=== PATIENT | female | born 1965 | race Caucasian/White ===

== ENCOUNTER 2018-07-12 07:31 | Day surgery (SDC) | payer BC ==
[2018-07-12 08:08] VITALS: BP 139/74
[2018-07-12] MEDS ORDERED: MARCAINE 0.5% INFILTRATI ONE ×2 (08:28→08:47)
[2018-07-12] MEDS ORDERED: XYLOCAINE 1% 20 mL ONE (08:28)
[2018-07-12] MEDS ORDERED: XYLOCAINE 1% 20 mL INFILTRATI ONE (08:47)
--- NOTE | 2018-07-12 10:36 | Procedure Note ---
Date of procedure: 07/12/18 Pre-op diagnosis: chronic low back pain Post-op diagnosis: same Procedure: Lumbar facet blocks left L3-5 Procedure The patient was brought to the OR and placed prone onto the OR table, the lumbar spine was prepped and draped in the usual sterile manner. A timeout procedure was done to identify the patient and the correct levels of nerve block being performed the patient was awake during the procedure. Using C-arm fluoroscopy the L5 for an levels were visualized in both the PA and 45 oblique views 20- gauge spinal needles were inserted again under direct fluoroscopic control after placing the spinal needles and the correct position and Marcaine injection was performed using 1% without epinephrine. The patient tolerated the procedure and no complications Anesthesia: local Surgeon: MARYAN BLACKBURN Estimated blood loss: minimal Condition: stable Disposition: observation
--- NOTE | 2018-07-13 07:50 | XRay Report ---
SPINE ONE VIEW SPECIFIED History: Chronic back pain. Findings: Fluoroscopy was provided by radiology during lumbar facet injection from L3-5 on the left side. 2 fluoroscopic images are presented demonstrating good needle placement. There is no obvious fracture or malalignment. Minor degenerative changes are suspected. Impression: Needle placement for facet injection. Minimal lumbar spondylosis.
== END 2018-07-12 09:40 | disposition home or self-care (01) ==
LOC: OR 07:31
PROVIDERS: ATTEND Orthopaedic Surgery
DX: M47.816 Spondylosis without myelopathy or radiculopathy, lumbar region (principal); E78.00 Pure hypercholesterolemia, unspecified; I10 Essential (primary) hypertension; M19.90 Unspecified osteoarthritis, unspecified site; F41.9 Anxiety disorder, unspecified; Z90.721 Acquired absence of ovaries, unilateral; Z79.899 Other long term (current) drug therapy
CPT/HCPCS: 72020; 82962

== ENCOUNTER 2018-09-26 08:16 | Outpatient (CLI) | payer BC ==
[2018-09-26 11:09] LABS: Chol/HDL Ratio 2.43 %
== END 2018-09-26 08:17 | disposition home or self-care (01) ==
LOC: LAB 08:16
PROVIDERS: ATTEND Internal Medicine
DX: E11.9 Type 2 diabetes mellitus without complications (principal); E78.5 Hyperlipidemia, unspecified; I10 Essential (primary) hypertension; E66.09 Other obesity due to excess calories; E78.00 Pure hypercholesterolemia, unspecified
CPT/HCPCS: 36415; 80061; 83036

== ENCOUNTER 2018-10-04 08:14 | Day surgery (SDC) | payer BC ==
[~2018-10-04 08:14] MED LIST: ANCEF/STERILE WATER 2 GM/20 ML IV NR; LACTATED RINGERS 1,000 ML IV SCH; VERSED IV NR
== END 2018-10-04 08:15 | disposition home or self-care (01) ==
LOC: OR 08:14
PROVIDERS: ATTEND Orthopaedic Surgery
DX: M54.5 Low back pain (principal); E78.00 Pure hypercholesterolemia, unspecified; I10 Essential (primary) hypertension; M19.90 Unspecified osteoarthritis, unspecified site; F41.9 Anxiety disorder, unspecified; Z53.8 Procedure and treatment not carried out for other reasons; Z90.721 Acquired absence of ovaries, unilateral; Z79.899 Other long term (current) drug therapy; Z98.890 Other specified postprocedural states

== ENCOUNTER 2018-10-10 06:03 | Day surgery (SDC) | payer BC ==
[~2018-10-10 06:03] MED LIST changes: -LACTATED RINGERS 1,000 ML IV SCH; -VERSED IV NR
[2018-10-10] MEDS ORDERED: NACL BACTERIOSTATIC INFILTRATI ONE (06:36)
[2018-10-10] MEDS ORDERED: LACTATED RINGERS 1,000 ML IV SCH (07:00)
[2018-10-10] MEDS ORDERED: DEPO-Medrol ONE (07:24)
[2018-10-10] MEDS ORDERED: MARCAINE 0.5% INFILTRATI ONE ×2 (07:24→09:30)
[2018-10-10] MEDS ORDERED: XYLOCAINE 1% 20 mL ONE (07:24)
[2018-10-10] MEDS ORDERED: XYLOCAINE 2%/ EPI 1:200,000 INFILTRATI ONE (07:26)
[2018-10-10] MEDS ORDERED: XYLOCAINE 2% INFILTRATI ONE ×2 (07:28→09:07)
[2018-10-10] MEDS ORDERED: ZOFRAN ONE (07:40)
[2018-10-10] MEDS ORDERED: SUBLIMAZE ONE (07:40)
[2018-10-10] MEDS ORDERED: XYLOCAINE MPF 2% ONE (07:40)
[2018-10-10] MEDS ORDERED: DIPRIVAN 10 MG/ML IV ONE (07:41)
[2018-10-10] MEDS ORDERED: ZOFRAN IV PRN (08:21)
[2018-10-10] MEDS ORDERED: DILAUDID IV PRN (08:21)
--- NOTE | 2018-10-10 08:21 | Anesthesia Consultation ---
Anesthesia Consult and Med Hx - Airway Anesthetic Teeth Evaluation: Good ROM Head & Neck: Adequate Mental/Hyoid Distance: Adequate Mallampati Class: Class II Intubation Access Assessment: Good - Pulmonary Exam CTA: Yes - Cardiac Exam Cardiac Exam: RRR - Pre-Operative Health Status ASA Pre-Surgery Classification: ASA2 Proposed Anesthetic Plan: MAC - Pulmonary Hx Smoking: No Hx Asthma: No Hx Sleep Apnea: No (JUNIOR PRE SCREEN HIGH RISK) - Cardiovascular System Hx Hypertension: Yes (X 1 YR) - Central Nervous System Hx Back Pain: Yes - Endocrine Hx Non-Insulin Dependent Diabetes: Yes (Apparently diet controlled , patient not on any medications) - Other Systems Hx Cancer: No - Additional Comments Anesthesia Medical History Comments: HTN, diet controlled DM , mild anxiety for RFA under MAC
--- NOTE | 2018-10-10 08:21 | Anesthesia Day of Surgery ---
Anesthesia Day of Surgery - Day of Surgery Patient Examined: Yes Patient H&P Reviewed: Yes Patient is NPO: Yes
[2018-10-10] MEDS ORDERED: VERSED ONE (08:41)
[2018-10-10] MEDS ORDERED: DEPO-Medrol INTRA-ARTI ONE (09:30)
[2018-10-10 10:40] VITALS: BP 125/78
--- NOTE | 2018-10-10 14:13 | Post Anesthesia Evaluation ---
- Post Anesthesia Evaluation Patient Participated: Yes Airway Patent: Yes Stable Respiratory Function: Yes Nausea/Vomiting: No Temp > 96.8F: Yes Pain Manageable: Yes Adequeate Hydration: Yes Anesthesia Complications: No
--- NOTE | 2018-10-11 07:29 | XRay Report ---
INTRAOPERATIVE LUMBAR SPINE RADIOGRAPHS INDICATION: Chronic lower back pain. COMPARISON: 07/12/2018. IMAGES/CINE CLIPS: 6 FINDINGS: Intraoperative fluoroscopic guidance provided for Dr. Montero. Initial postal clerk image demonstrates a radiopaque marker projecting over left L4-L5 pedicle/facet. Subsequent AP and lateral images demonstrate spinal needle placements about L2-L5 facet joints on the left. CONCLUSION: Intraoperative fluoroscopic guidance provided for L2-L5 radiofrequency ablation for pain, as described. Thank you for the opportunity to participate in this patient's care.
--- NOTE | 2018-10-16 16:29 | Procedure Note ---
Date of procedure: 10/10/18 Pre-op diagnosis: Chronic low back pain Post-op diagnosis: same Procedure: Lumbar radiofrequency ablation at the left L2-5 Procedure The patient was brought to the OR and placed on the Vijay table prone with a pillow place underneath the abdomen to straighten out the lumbar spine next the lumbar spine area was prepped and draped in the usual sterile manner. A timeout procedure done to identify the patient and correct operative site Using C-arm fluoroscopy 4 lumbar pain management introducers placed in the area near the superior articular process junctions to the transverse processes AP and lateral views were used to confirm correct placement of the probes. Next motor nerves were checked to ensure that we were not next to a motor branch following this local anesthetic was used to deaden the area followed by radiofrequency ablation of the medial branch of the dorsal rami. This step repeated for each level until we had perform all three spots. At the completion of the third and final ablation the patient was awakened and was taken to postanesthesia recovery in a stable condition, there were no complications Anesthesia: other Surgeon: MARYAN BLACKBURN Estimated blood loss: none Pathology: none
== END 2018-10-10 11:00 | disposition home or self-care (01) ==
LOC: OR 06:03
PROVIDERS: ATTEND Orthopaedic Surgery
DX: M47.816 Spondylosis without myelopathy or radiculopathy, lumbar region (principal); E78.00 Pure hypercholesterolemia, unspecified; I10 Essential (primary) hypertension; M19.90 Unspecified osteoarthritis, unspecified site; E11.9 Type 2 diabetes mellitus without complications; F41.9 Anxiety disorder, unspecified; Z79.899 Other long term (current) drug therapy; Z90.721 Acquired absence of ovaries, unilateral
CPT/HCPCS: 64635; 64636; 72100; 82962; A4649; J0690; J1030; J2250; J2405; J2704; J3010; J7120

== ENCOUNTER 2018-10-18 07:16 | Outpatient (CLI) | payer BC ==
--- NOTE | 2018-10-18 10:39 | Mammography Report ---
BILATERAL DIGITAL SCREENING MAMMOGRAM with CAD : 10/18/18 07:16:00 CLINICAL: Routine screening. COMPARISON:None available. FINDINGS: The breasts are heterogeneously dense, which may obscure small masses.Scattered bilateral benign calcifications. No mass, architectural distortion or suspicious calcifications. IMPRESSION: No mammographic evidence of malignancy. BI-RADS CATEGORY: 2 -- Benign RECOMMENDATION: Routine mammographic screening in one year. COMMENT: Patient follow-up letters are generated by our [employer] application.
== END 2018-10-18 07:17 | disposition home or self-care (01) ==
LOC: MAMMO 07:16
PROVIDERS: ATTEND Internal Medicine
DX: Z12.31 Encounter for screening mammogram for malignant neoplasm of breast (principal); I10 Essential (primary) hypertension; E78.00 Pure hypercholesterolemia, unspecified; E11.9 Type 2 diabetes mellitus without complications
CPT/HCPCS: 77067

== ENCOUNTER 2019-03-08 06:55 | Outpatient (CLI) | payer BC ==
--- NOTE | 2019-03-08 08:38 | Magnetic Resonance Report ---
MR lumbar spine wo con INDICATION / CLINICAL INFORMATION: 53 years Female; M54.5 LOW BACK PAIN. TECHNIQUE: Multisequence, multiplanar images of the lumbar spine were obtained. Some motion artifact present. COMPARISON: None available. FINDINGS: ALIGNMENT: Normal lumbar lordosis without significant scoliosis. VERTEBRAE:Grossly normal marrow signal and vertebral body height for age. VISUALIZED SPINAL CORD: No significant abnormality. Conus is grossly normal in appearance. INTERVERTEBRAL DISCS: Mild disc desiccation seen at L5-S1 and L4-5. [id number] ANALYSIS: L1-2: No significant abnormality. L2-3: No significant abnormality. L3-4: Mild facet hypertrophy. No canal stenosis or foraminal narrowing. L4-5: Minimal disc bulge and facet hypertrophy. Mild foraminal narrowing on the right. No significant sequela. L5-S1: Mild disc bulge and small right paracentral disc protrusion. Mild to moderate facet hypertroph y. Small synovial cysts project laterally from the facet joints - these do not affect the vertebral c anal or neural foramen. Mild foraminal narrowing bilaterally. No significant sequela. PARASPINAL SOFT TISSUES: Some component of paraspinous muscular edema is seen dorsal to the L3-L5 reg ions leftward of midline-some type of muscle strain may have occurred. Please clinically correlate. ADDITIONAL FINDINGS: None. IMPRESSION: 1. Degenerative changes of the lumbar spine as described above. No single, dominant cause for patien t's symptomatology appreciated. 2. Paraspinous muscular strain might be consideration, as described above. Signer Name: Jim Shaw MD, III Signed: 03/08/2019 8:34 AM Workstation Name: [email or web address]
== END 2019-03-08 06:56 | disposition home or self-care (01) ==
LOC: MRI 06:55
PROVIDERS: ATTEND Orthopaedic Surgery
DX: M54.5 Low back pain (principal)
CPT/HCPCS: 72148

== ENCOUNTER 2019-03-28 15:31 | Outpatient (CLI) | payer BC ==
--- NOTE | 2019-03-28 16:46 | XRay Report ---
BILATERAL FEET RADIOGRAPHS / XR foot BILAT 3+V INDICATION: G57.61 LESION OF PLANTAR NERVE. Patient states pain on bottom of both feet and goes up b ack of legs. COMPARISON: None. FINDINGS: AP, lateral and oblique views of both feet demonstrate intact bony articulation. No focal suspicious erosions. Preserved plantar arches. Small calcaneal spurs noted bilaterally, dorsal slight ly larger than plantar. Unremarkable soft tissues. IMPRESSION: No acute osseous or soft tissue abnormality. Mild bilateral calcaneal degenerative sp urring. Thank you for the opportunity to participate in this patient's care. Signer Name: Kimberly Lewis Signed: 03/28/2019 4:42 PM Workstation Name: [id number]
== END 2019-03-28 15:32 | disposition home or self-care (01) ==
LOC: XRAY 15:31
PROVIDERS: ATTEND Podiatrist Foot & Ankle Surgery
DX: M77.32 Calcaneal spur, left foot (principal); M77.31 Calcaneal spur, right foot; G57.61 Lesion of plantar nerve, right lower limb; I10 Essential (primary) hypertension; E78.00 Pure hypercholesterolemia, unspecified; M19.90 Unspecified osteoarthritis, unspecified site; F41.9 Anxiety disorder, unspecified

== ENCOUNTER 2019-08-28 06:51 | Outpatient (CLI) | payer BC | END 2019-08-28 06:52 | disposition home or self-care (01) | LOC: LABHHL 06:51 | PROVIDERS: ATTEND Obstetrics & Gynecology | DX: Z01.419 Encounter for gynecological examination (general) (routine) without abnormal findings (principal); Z3A.00 Weeks of gestation of pregnancy not specified | CPT/HCPCS: 36415 ==

== ENCOUNTER 2019-12-12 07:51 | Emergency (ER) | payer BC ==
[2019-12-12 08:21] VITALS: BP 141/75
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
[2019-12-12] MEDS ORDERED: HYDROcodone/ACETAMINOPHEN 10-325MG TAB PO ONE (10:07)
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
== END 2019-12-12 10:44 | disposition home or self-care (01) ==
LOC: ED 07:51
DX: S13.4XXA Sprain of ligaments of cervical spine, initial encounter (principal); S39.012A Strain of muscle, fascia and tendon of lower back, initial encounter; I10 Essential (primary) hypertension; E11.9 Type 2 diabetes mellitus without complications; M13.88 Other specified arthritis, other site; Z79.899 Other long term (current) drug therapy; V89.2XXA Person injured in unspecified motor-vehicle accident, traffic, initial encounter; Y93.89 Activity, other specified; Y92.410 Unspecified street and highway as the place of occurrence of the external cause; Y99.8 Other external cause status
CPT/HCPCS: 72040; 72100; 99283

== ENCOUNTER 2020-03-11 09:25 | Outpatient (CLI) | payer BC ==
[2020-03-11 10:05] LABS: Alanine Aminotransferase 14 units/L (7-56); HDL Cholesterol 62 mg/dL (40-59); LDL Cholesterol,Direct 84 mg/dL (50-130)
[2020-03-11 10:08] LABS: Bilirubin,Direct < 0.2 mg/dL (0-0.2)
== END 2020-03-11 09:26 | disposition home or self-care (01) ==
LOC: LAB 09:25
PROVIDERS: ATTEND Internal Medicine
DX: E11.9 Type 2 diabetes mellitus without complications (principal); R94.5 Abnormal results of liver function studies; E78.5 Hyperlipidemia, unspecified
CPT/HCPCS: 36415; 80061; 80076; 83036

== ENCOUNTER 2020-05-15 14:52 | Outpatient (CLI) | payer BC ==
--- NOTE | 2020-05-15 16:41 | XRay Report ---
RIGHT SHOULDER 3 VIEWS INDICATION / CLINICAL INFORMATION: Right shoulder pain. COMPARISON: None available. FINDINGS: BONES / JOINT(S): The joint spaces are well-maintained. There is no evidence of fracture, subluxation or destructive lesion. SOFT TISSUES: There is moderate calcification along the superolateral margin of the humeral head, bes t seen on the internally rotated view. ADDITIONAL FINDINGS: The right lung is clear. IMPRESSION: Moderate calcific tendinopathy involving the right rotator cuff. Signer Name: Humberto Corrales MD Signed: 05/15/2020 4:37 PM Workstation Name: [id number]
== END 2020-05-15 14:53 | disposition home or self-care (01) ==
LOC: XRAY 14:52
PROVIDERS: ATTEND Internal Medicine
DX: M25.511 Pain in right shoulder (principal)

== ENCOUNTER 2020-06-01 14:45 | Outpatient (CLI) | payer BC ==
--- NOTE | 2020-06-01 15:40 | XRay Report ---
LEFT SHOULDER 3 VIEW(S) INDICATION / CLINICAL INFORMATION: LEFT SHOULDER PAIN COMPARISON: None available. FINDINGS: BONES / JOINT(S): Punctate calcific density at the insertion of the rotator cuff could represent hydr oxyapatite deposition as seen in hydroxyapatite deposition disease/calcific tendinitis. No acute frac ture or subluxation. No significant arthritis. SOFT TISSUES: No significant abnormality. ADDITIONAL FINDINGS: None. Signer Name: Humberto Rausch MD Signed: 06/01/2020 3:36 PM Workstation Name: [id number]
== END 2020-06-01 14:46 | disposition home or self-care (01) ==
LOC: XRAY 14:45
PROVIDERS: ATTEND Internal Medicine
DX: M25.512 Pain in left shoulder (principal); M25.511 Pain in right shoulder

== ENCOUNTER 2020-08-06 06:41 | Outpatient (CLI) | payer BC ==
[2020-08-06 07:23] LABS: Chol/HDL Ratio 2.32 %
== END 2020-08-06 06:42 | disposition home or self-care (01) ==
LOC: LAB 06:41
PROVIDERS: ATTEND Internal Medicine
DX: E11.9 Type 2 diabetes mellitus without complications (principal); E78.9 Disorder of lipoprotein metabolism, unspecified
CPT/HCPCS: 36415; 80061; 83036

== ENCOUNTER 2020-09-07 10:01 | Outpatient (CLI) | payer BC ==
--- NOTE | 2020-09-07 11:24 | Magnetic Resonance Report ---
MRI RIGHT SHOULDER WITHOUT CONTRAST INDICATION: Right shoulder pain. COMPARISON: None available. TECHNIQUE: Multisequence, multiplanar images were obtained. FINDINGS: ACROMIOCLAVICULAR JOINT: No significant abnormality. ACROMION: Type I SUPRASPINATUS: Tendinosis with partial less than 50% thickness articular sided tear critical zone INFRASPINATUS: Tendinosis SUBSCAPULARIS: No significant abnormality. BICEPS TENDON, LONG HEAD: Tendinosis SUBACROMIAL/SUBDELTOID SPACE: Mild bursitis GLENOID LABRUM: Degenerative signal superior labrum ARTICULAR CARTILAGE: No significant abnormality. JOINT SPACE AND CAPSULE: No significant abnormality. BONES: No significant bone marrow edema. No fracture. No osseous lesion. SUBCUTANEOUS SOFT TISSUES: No significant abnormality. ADDITIONAL FINDINGS: None. IMPRESSION: 1. Partial less than 50% thickness articular sided tear critical zone supraspinatus 2. Supraspinatus, infraspinatus and intra-articular biceps tendinosis. Signer Name: Joaquín Johnson MD Signed: 09/07/2020 11:20 AM Workstation Name: [email or web address]
--- NOTE | 2020-09-07 11:40 | Magnetic Resonance Report ---
MRI LEFT SHOULDER WITHOUT CONTRAST INDICATION: IMPINGEMENT SYNDROME OF LEFT SHOULDER. COMPARISON: Left shoulder x-ray 06/01/2020 TECHNIQUE: Multisequence, multiplanar images were obtained. FINDINGS: ACROMIOCLAVICULAR JOINT: No significant abnormality. ACROMION: Subacromial decompression. No rotator cuff encroachment SUPRASPINATUS: Moderate tendinosis INFRASPINATUS: Tendinosis with intrasubstance delaminating tear with intratendinous cyst measuring 1. 3 x 1.8 x 0.7 cm SUBSCAPULARIS: No significant abnormality. BICEPS TENDON, LONG HEAD: No significant abnormality. SUBACROMIAL/SUBDELTOID SPACE: Mild bursitis. GLENOID LABRUM: No significant abnormality. ARTICULAR CARTILAGE: No significant abnormality. JOINT SPACE AND CAPSULE: No significant abnormality. BONES: No significant bone marrow edema. No fracture. No osseous lesion. SUBCUTANEOUS SOFT TISSUES: No significant abnormality. ADDITIONAL FINDINGS: None. IMPRESSION: 1. Marked supraspinatus tendinosis 2. Infraspinatus tendinosis with intrasubstance delaminating tear and intratendinous cyst Signer Name: Joaquín Johnson MD Signed: 09/07/2020 11:36 AM Workstation Name: [id number]
== END 2020-09-07 10:02 | disposition home or self-care (01) ==
LOC: MRI 10:01
PROVIDERS: ATTEND Orthopaedic Surgery
DX: S41.012A Laceration without foreign body of left shoulder, initial encounter (principal); S41.011A Laceration without foreign body of right shoulder, initial encounter; M75.41 Impingement syndrome of right shoulder; M75.42 Impingement syndrome of left shoulder; M77.8 Other enthesopathies, not elsewhere classified; M75.52 Bursitis of left shoulder; M75.51 Bursitis of right shoulder; X58.XXXA Exposure to other specified factors, initial encounter; Y93.89 Activity, other specified; Y92.89 Other specified places as the place of occurrence of the external cause; Y99.8 Other external cause status

== ENCOUNTER 2020-09-16 13:50 | Emergency (ER) | payer BC ==
[2020-09-16 14:23] VITALS: BP 143/81
--- NOTE | 2020-09-16 14:55 | Event Note ---
ED Screening Note ED Screening Note: states she had left sided HUBBARD that began three days ago she has associated tingling to the left face denies having before took ibuprofen with some relief states her left eye feels dry and has been watering no vision changes no numbness or weakness in the BUE/BLE pmhx none no allergies to meds non smoker non drinker This initial assessment/diagnostic orders/clinical plan/treatment(s) is/are subject to change based on patients health status, clinical progression and re- assessment by fellow clinical providers in the ED. Further treatment and workup at subsequent clinical providers discretion. Patient/guardian urged not to elope from the ED as their condition may be serious if not clinically assessed and managed. Initial orders include: labs, CT
[2020-09-16 15:40] LABS: Basophils % (Auto) 0.4 % (0.0-1.8); Eosinophils # (Auto) 0.1 K/mm3 (0.0-0.4); Eosinophils % (Auto) 1.9 % (0.0-4.3); Hematocrit 38.6 % (30.3-42.9); Hemoglobin 12.9 gm/dl (10.1-14.3); Lymphocytes # (Auto) 2.4 K/mm3 (1.2-5.4); Mean Corpuscular HGB Conc 33 % (30-34); Mean Corpuscular Volume 90 fl (79-97); Monocytes # (Auto) 0.5 K/mm3 (0.0-0.8); Monocytes % (Auto) 6.9 % (0.0-7.3); Platelet Count 268 K/mm3 (140-440); Red Blood Count 4.28 M/mm3 (3.65-5.03); Red Cell Distribution Width 13.1 % (13.2-15.2)
[2020-09-16 15:55] LABS: Alanine Aminotransferase 11 units/L (7-56); Albumin 3.8 g/dL (3.9-5); Blood Urea Nitrogen 14 mg/dL (7-17); Calcium 9.1 mg/dL (8.4-10.2); Hemolysis Index 5
[2020-09-16 15:58] LABS: BUN/Creatinine Ratio 23
--- NOTE | 2020-09-16 16:38 | Cat Scan Report ---
CT HEAD WITHOUT CONTRAST INDICATION / CLINICAL INFORMATION: left sided HUBBARD, with left sided facial tingling. TECHNIQUE: All CT scans at this location are performed using CT dose reduction for ALARA by means of automated e xposure control. COMPARISON: None available. FINDINGS: HEMORRHAGE: None. EXTRA-AXIAL SPACES: Normal in size and morphology for the patient's age. VENTRICULAR SYSTEM: Normal in size and morphology for the patient's age. CEREBRAL PARENCHYMA: No significant abnormality. No acute territorial infarct. MIDLINE SHIFT OR HERNIATION: None. CEREBELLUM / BRAINSTEM: No significant abnormality. ORBITS: Normal as visualized. SOFT TISSUES of HEAD: No significant abnormality. CALVARIUM: No significant abnormality. PARANASAL SINUSES / MASTOID AIR CELLS: Normal as visualized. ADDITIONAL FINDINGS: None. IMPRESSION: 1. No acute intracranial abnormality. Signer Name: Pantera Sullivan MD Signed: 09/16/2020 4:34 PM Workstation Name: [id number]
--- NOTE | 2020-09-16 23:00 | Emergency Department Report ---
ED Headache HPI - General Chief Complaint: Neuro Symptoms/Deficit Stated Complaint: L SIDE HEAD/NECK PAIN Time Seen by Provider: 09/16/20 14:53 Source: patient - History of Present Illness Initial Comments: 54-year-old female presents emerged department complaining of a 1 week history of left-sided head and neck pain associated with a dull throbbing. States that the pain began radiating around her eye and her restorationist area causing some numbness and tingling to her face. A little blurred vision out of the left eye but reports no slurred speech, no weakness, fever, chills, sweats, neck pain. [ End ] Head Injury Location: temporal, parietal Recent Head Trauma: no recent headache/trauma Modifying Factors: improves with: movement Associated Symptoms: denies: nausea/vomiting, nasal congestion, nasal drainage, sinus infection, vision changes Allergies/Adverse Reactions: Allergies No Known Allergies Allergy (Verified 09/16/20 14:17) Home Medications: Ambulatory Orders Amitriptyline HCl 150 mg PO QHS 07/05/18 Cholecalciferol (Vitamin D3) [Vitamin D3] 2,000 unit PO DAILY 07/05/18 Cyanocobalamin (Vitamin B-12) [Vitamin B12] 2,500 mcg PO DAILY 07/05/18 Lisinopril [Zestril] 10 mg PO DAILY 07/05/18 Meloxicam 15 mg PO DAILY 07/05/18 Multivit-Min/Iron/Folic/Lutein [Centrum Silver Women Tablet] 1 each PO DAILY 07/05/18 Rosuvastatin Calcium [Crestor] 10 mg PO QHS 07/05/18 busPIRone [Buspar] 10 mg PO BID 07/05/18 HYDROcodone/APAP 5-325 [[place] 5-325 mg TAB] 1 each PO Q4HR PRN #20 tablet 10/10/18 Cyclobenzaprine [Flexeril] 10 mg PO QHS PRN #10 tablet 12/12/19 Naproxen 500 mg PO Q12H PRN #20 tablet 12/12/19 Butalb/Acetaminophen/Caffeine [Fioricet 50-300-40 mg CAP] 1 cap PO Q8HR PRN #14 cap 09/16/20 ED Review of Systems ROS: Stated complaint: L SIDE HEAD/NECK PAIN Other details as noted in HPI Comment: All other systems reviewed and negative ED Past Medical Hx - Past Medical History Hx Hypertension: Yes (X 1 YR) Hx Diabetes: Yes (NO MEDS YET , DIET CONTROLLED) Hx Arthritis: Yes (JOINT PAIN) Hx Asthma: No Hx HIV: No - Social History Smoking Status: Never Smoker Substance Use Type: None - Medications Home Medications: Home Medications Medication Instructions Recorded Confirmed Last Taken Type Amitriptyline HCl 150 mg PO QHS 07/05/18 10/08/18 10/09/18 06:30 History Cholecalciferol (Vitamin D3) 2,000 unit PO DAILY 07/05/18 10/08/18 10/09/18 06:30 History [Vitamin D3] Cyanocobalamin (Vitamin B-12) 2,500 mcg PO DAILY 07/05/18 10/08/18 10/09/18 06:30 History [Vitamin B12] Lisinopril [Zestril] 10 mg PO DAILY 07/05/18 10/08/18 10/09/18 06:30 History Meloxicam 15 mg PO DAILY 07/05/18 10/08/18 10/09/18 06:30 History Multivit-Min/Iron/Folic/Lutein 1 each PO DAILY 07/05/18 10/08/18 10/09/18 06:30 History [Centrum Silver Women Tablet] Rosuvastatin Calcium [Crestor] 10 mg PO QHS 07/05/18 10/08/18 10/09/18 06:30 History busPIRone [Buspar] 10 mg PO BID 07/05/18 10/08/18 10/09/18 06:30 History HYDROcodone/APAP 5-325 [[place] 1 each PO Q4HR PRN #20 tablet 10/10/18 Unknown Rx 5-325 mg TAB] Cyclobenzaprine [Flexeril] 10 mg PO QHS PRN #10 tablet 12/12/19 Unknown Rx Naproxen 500 mg PO Q12H PRN #20 tablet 12/12/19 Unknown Rx Butalb/Acetaminophen/Caffeine 1 cap PO Q8HR PRN #14 cap 09/16/20 Unknown Rx [Fioricet 50-300-40 mg CAP] ED Physical Exam - General Limitations: No Limitations General appearance: alert, in no apparent distress - Head Head exam: Present: atraumatic, normocephalic - Eye Eye exam: Present: normal appearance, PERRL, EOMI Pupils: Present: normal accommodation - ENT ENT exam: Present: normal exam, normal orophraynx, mucous membranes moist, TM's normal bilaterally - Neck Neck exam: Present: normal inspection, full ROM - Respiratory Respiratory exam: Present: normal lung sounds bilaterally. Absent: respiratory distress, wheezes, rhonchi, chest wall tenderness, accessory muscle use - Cardiovascular Cardiovascular Exam: Present: regular rate, normal rhythm. Absent: systolic murmur, diastolic murmur, rubs, gallop - GI/Abdominal GI/Abdominal exam: Present: soft, normal bowel sounds - Extremities Exam Extremities exam: Present: normal inspection - Back Exam Back exam: Present: normal inspection - Neurological Exam Neurological exam: Present: alert, oriented X3 - Psychiatric Psychiatric exam: Present: normal affect, normal mood - Skin Skin exam: Present: warm, dry, intact, normal color. Absent: rash ED Course Vital Signs 09/16/20 14:20 Temperature 98.0 F Pulse Rate 58 L Respiratory 16 Rate Blood Pressure 143/81 O2 Sat by Pulse 98 Oximetry ED Medical Decision Making - Lab Data Result diagrams: 09/16/20 15:05 09/16/20 15:05 Critical care attestation.: If time is entered above; I have spent that time in minutes in the direct care of this critically ill patient, excluding procedure time. ED Disposition Disposition: DC-01 TO HOME OR SELFCARE Condition: Stable Instructions: Migraine Headache, [id number], General Headache Without Cause, Cluster Headache, Form - Headache Record Prescriptions: Butalb/Acetaminophen/Caffeine [Fioricet 50-300-40 mg CAP] 1 cap PO Q8HR PRN #14 cap PRN Reason: Headache Referrals: PRIMARY CARE, [Primary Care Provider] - 3-5 Days SVETLANA FINLEY MD [Staff Physician] - 3-5 Days
== END 2020-09-16 23:29 | disposition home or self-care (01) ==
LOC: ED 13:50
DX: R51.9 Headache, unspecified (principal); M54.2 Cervicalgia; I10 Essential (primary) hypertension; E11.9 Type 2 diabetes mellitus without complications; M19.90 Unspecified osteoarthritis, unspecified site; Z79.899 Other long term (current) drug therapy
CPT/HCPCS: 36415; 70450; 80053; 82550; 83735; 85025

== ENCOUNTER 2021-01-22 09:45 | Outpatient (CLI) | payer BC ==
[2021-01-22 10:37] LABS: Chol/HDL Ratio 2.29 %
== END 2021-01-22 09:46 | disposition home or self-care (01) ==
LOC: LAB 09:45
PROVIDERS: ATTEND Internal Medicine
DX: E11.9 Type 2 diabetes mellitus without complications (principal); E78.5 Hyperlipidemia, unspecified
CPT/HCPCS: 36415; 80061; 83036

== ENCOUNTER 2021-05-12 11:09 | Outpatient (CLI) | payer BC ==
[2021-05-12 11:57] LABS: Basophils % (Auto) 0.3 % (0.0-1.8); Eosinophils # (Auto) 0.1 K/mm3 (0.0-0.4); Eosinophils % (Auto) 1.8 % (0.0-4.3); Hematocrit 39.5 % (30.3-42.9); Hemoglobin 13.3 gm/dl (10.1-14.3); Lymphocytes # (Auto) 2.1 K/mm3 (1.2-5.4); Lymphocytes % (Auto) 38.7 % (13.4-35.0); Mean Corpuscular HGB Conc 34 % (30-34); Mean Corpuscular Volume 89 fl (79-97); Monocytes # (Auto) 0.4 K/mm3 (0.0-0.8); Monocytes % (Auto) 6.9 % (0.0-7.3); Platelet Count 273 K/mm3 (140-440); Red Blood Count 4.46 M/mm3 (3.65-5.03); Red Cell Distribution Width 13.3 % (13.2-15.2)
[2021-05-12 12:12] LABS: Alanine Aminotransferase 17 units/L (7-56); Albumin 4.4 g/dL (3.9-5); BUN/Creatinine Ratio 28; Blood Urea Nitrogen 14 mg/dL (7-17); Calcium 9.2 mg/dL (8.4-10.2); HDL Cholesterol 67 mg/dL (40-59); Hemolysis Index 4; LDL Cholesterol,Direct 104 mg/dL (50-130)
== END 2021-05-12 11:10 | disposition home or self-care (01) ==
LOC: LAB 11:09
PROVIDERS: ATTEND Internal Medicine
DX: Z00.00 Encounter for general adult medical examination without abnormal findings (principal); E78.5 Hyperlipidemia, unspecified; I10 Essential (primary) hypertension; E11.9 Type 2 diabetes mellitus without complications; R53.83 Other fatigue
CPT/HCPCS: 36415; 80053; 80061; 82306; 83036; 84443; 85025

== ENCOUNTER 2021-05-25 08:27 | Outpatient (CLI) | payer BC ==
--- NOTE | 2021-05-25 15:45 | Mammography Report ---
DIGITAL SCREENING MAMMOGRAM WITH CAD, 05/25/2021 CLINICAL INFORMATION / INDICATION: Routine screening TECHNIQUE: Digital bilateral 2D mammography was obtained in the craniocaudal and mediolateral obliqu e projections. This examination was interpreted with the benefit of Computer-Aided Detection analysis . COMPARISON: 11/28/2019 FINDINGS: Breast Density: The breasts are heterogeneously dense, which may obscure small masses. No dominant mass, suspicious calcifications, or architectural distortion in the right breast. Benign-appearing calcified right nodule is again noted. A small benign-appearing nodule in the feed adviser ior depth of the left central breast, slightly lateral at roughly 3:30, has increased in size and sharmila sures 10 mm. IMPRESSION: Increasing though probably benign nodule in the left Follow up recommendation: Left breast ultrasound BI-RADS Category 0: INCOMPLETE. Needs additional imaging evaluation and/or prior mammograms for freddie de luna. A "normal" or negative report should not discourage follow up or biopsy of a clinically significant f inding. A written summary of these findings will be mailed to the patient. The patient will be entered into a mammography reporting system which will generate a reminder letter for the patient's next appointmen t at the appropriate interval. The [employer] recommends yearly mammograms starting at age 40 and continuing as l gino as a woman is in good health. Breast MRI is recommended for women with an approximate 20-25% or greater lifetime risk of breast cancer, including women with a strong family history of breast or ova zeyad cancer or who have been treated for Hodgkin's disease. Signer Name: Oswaldo Chavez MD Signed: 05/25/2021 3:41 PM Workstation Name: [email or web address]
== END 2021-05-25 08:28 | disposition home or self-care (01) ==
LOC: MAMMO 08:27
PROVIDERS: ATTEND Internal Medicine
DX: Z12.31 Encounter for screening mammogram for malignant neoplasm of breast (principal); N63.20 Unspecified lump in the left breast, unspecified quadrant; N64.89 Other specified disorders of breast
CPT/HCPCS: 77067

== ENCOUNTER 2021-06-07 08:29 | Outpatient (CLI) | payer BC ==
--- NOTE | 2021-06-07 09:26 | Ultrasound Report ---
ULTRASOUND BREAST LEFT LIMITED, 06/07/2021 CLINICAL INFORMATION / INDICATION: Nodule in the left lateral breast has increased in size on screeni ng mammography.. TECHNIQUE: Targeted ultrasound evaluation was performed of the area of interest. COMPARISON: Bilateral mammography 05/25/21. FINDINGS: There is an 8 mm rounded simple cyst at the 3:30 position 7 cm from the nipple which corresponds to t he site of the mammographically detected nodule. No suspicious feature is seen. No other abnormality is identified. IMPRESSION: The mammographically detected nodule corresponds to an 8 mm simple cyst. Follow up recommendation: Routine yearly BI-RADS Category 2: BENIGN. A normal or "negative" report should not preclude biopsy or follow-up of a clinically suspicious find ing. Signer Name: Humberto Corrales MD Signed: 06/07/2021 9:22 AM Workstation Name: [email or web address]
== END 2021-06-07 08:30 | disposition home or self-care (01) ==
LOC: US 08:29
PROVIDERS: ATTEND Internal Medicine
DX: N60.02 Solitary cyst of left breast (principal)

== ENCOUNTER 2021-11-22 09:53 | Outpatient (CLI) | payer BC ==
[2021-11-22 11:05] LABS: Chol/HDL Ratio 2.6 %
== END 2021-11-22 09:54 | disposition home or self-care (01) ==
LOC: LAB 09:53
PROVIDERS: ATTEND Internal Medicine
DX: E11.9 Type 2 diabetes mellitus without complications (principal); E78.5 Hyperlipidemia, unspecified
CPT/HCPCS: 36415; 80061; 83036